=== PATIENT | male | born 1960 | race Caucasian/White ===

== ENCOUNTER 2018-05-12 00:46 | Inpatient (IN) ==
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
[2018-05-12 01:40] LABS: Baso % (Auto) 0.5 % (0.0-2.0); Eos # (Auto) 0.1 th/mm3 (0.0-0.4); Eos % (Auto) 1.3 % (0.0-4.0); Hematocrit 37.8 % (39.0-51.0); Hemoglobin 12.9 gm/dL (13.0-17.0); Lymph # (Auto) 1.7 th/mm3 (1.0-4.8); Lymph % (Auto) 20.7 % (9.0-44.0); Mean Corpuscular Hemoglobin 32.9 pg (27.0-34.0); Mean Corpuscular Volume 96.8 fL (80.0-100.0); Mean Platelet Volume 7.9 fL (7.0-11.0); Mono # (Auto) 0.8 th/mm3 (0.0-0.9); Mono % (Auto) 10.1 % (0.0-8.0); Neut # (Auto) 5.7 th/mm3 (1.8-7.7); Neut % (Auto) 67.4 % (16.0-70.0); Platelet Count 196 th/mm3 (150-450); Red Blood Count 3.91 mil/mm3 (4.50-5.90); Red Cell Distribution Width 14.6 % (11.6-17.2); White Blood Count 8.4 th/mm3 (4.0-11.0)
[2018-05-12 02:03] LABS: Alanine Aminotransferase 41 U/L (12-78); Albumin 3.5 g/dL (3.4-5.0); Anion Gap 10 meq/L (5-15); Aspartate Aminotransferase 26 U/L (15-37); Blood Urea Nitrogen 15 mg/dL (7-18); Calcium 8.3 mg/dL (8.5-10.1); Carbon Dioxide 25.3 meq/L (21.0-32.0); Chloride 112 meq/L (98-107); Glomerular Filtration Rate 69 mL/min (>89); Glucose,Random 84 mg/dL (74-106); Potassium 3.6 meq/L (3.5-5.1); Sodium 147 meq/L (136-145)
[2018-05-12 02:13] LABS: Alkaline Phosphatase 70 U/L (45-117); Thyroid Stimulating Hormone 0.698 uIU/mL (0.358-3.740); Total Protein 6.9 g/dL (6.4-8.2)
[2018-05-12 05:38] LABS: Amphetamine Screen,Urine Neg (Neg); Barbiturate Screen,Urine Neg (Neg); Cannabinoid Screen,Urine Neg (Neg); Cocaine Screen,Urine Neg (Neg)
[2018-05-12 05:56] LABS: Opiate Screen,Urine Neg (Neg)
[2018-05-12] MEDS ORDERED: LORazepam 1 MG Tablet PO PRN (09:34)
[2018-05-12] MEDS ORDERED: Aluminum/Magnesium/Simethacone Susp 30 ML UDC PO PRN (09:34)
[2018-05-12] MEDS ORDERED: Bisacodyl 10 MG Supp RECTAL PRN (09:34)
[2018-05-12] MEDS ORDERED: Haloperidol Inj 5 MG/ML Ampul IV.PUSH PRN (09:34)
--- NOTE | 2018-05-12 11:35 | P.HPPSY ---
Provisional Diagnosis Admission Date: May 12, 2018 09:43 Milroy I.: Schizophrenia Competence Certification of Person's Competence To Provide Express and Informed Consent I have personally examined Shalom Barakat, a person being served at [facility] on, May 12, 2018 1127. Express and informed consent means consent voluntarily given in writing, by a competent person, after sufficient explanation and disclosure of the subject matter involved to enable the person to make a knowing and willful decision without any element of force, fraud, deceit, duress, or other form of constraint or coercion. This person is 18 years of age or older, is not now known to be incompetent to consent to treatment with a guardian advocate, and does not have a health care surrogate or proxy currently making medical treatment decisions. I have found this person to be one of the following: [] Competent to provide express and informed consent, as defined above, for voluntary admission to this facility and is competent to provide express and informed consent for treatment. He/she has the consistent capacity to make well reasoned, willful, and knowing decisions concerning his or her medical or mental health treatment. The person fully and consistently understands the purpose of the admission for examination/placement and is fully capable of personally exercising all rights assured under [place] [] Incompetent to provide express and informed consent to voluntary admission, and this is incompetent to provide express and informed consent to treatment. The person must be transferred to involuntary status and a petition for a guardian advocate filed with the Circuit Court. [x] Refusing to provide express and informed consent to voluntary admission but is competent to provide express and informed consent for treatment. The person must be discharged or transferred to involuntary status. Form shall be completed within 24 hours of a person's arrival at the receiving facility and filed in the clinical record of each person: 1. Admitted on a voluntary basis 2. Permitted to provide express and informed consent to his/her own treatment 3. Allowed to transfer from involuntary to voluntary status 4. Prior to permitting a person to consent to his or her own treatment after having been previously found incompetent to consent to treatment. History of Present Illness Capacity: Has capacity History of Present Illness: The patient is a 57-year-old man, homeless, single, unemployed, supported by [facility], first time at [place], with a psychiatric history of schizophrenia, multiple psychiatric hospitalizations, as well as multiple suicidal attempts, he is noting treatment, denies the use of illegal drugs and alcohol, medical history of hypertension, presents emergency department under [place] act by PD. Patient was directing traffic standing out in the center jose of traffic. The patient states that he has just gotten to the [facility] over the last few days. He states that he is originally from [place]. Chart was reviewed. Case discussed with nurse in charge. On my psychiatric evaluation I find a patient that is calm, cooperative, but oddly related, quite bizarre and laughing inappropriately. He reports that he is here because his brain has been spinning very fast. He also says that he has lost the control of his brain , and he feels like his voice is changing as well as his thoughts. He reports to be in a good mood, he says that he is actually happy, he says that he was diagnosed with schizophrenia many years ago, that he has been hospitalized over 10 times, that he was given Haldol in the past, but he has not been taking medication for a long time now. The patient seems to be quite internally preoccupied, he is also paranoid, he says that he feels that people can hear his thoughts, "and they are "watching at me". The patient has being mostly isolated in the unit, talking to self at times, laughing inappropriately, last night he was described as very intrusive. On the evaluation the patient remains mostly logical, coherent and relevant, he denies suicidal and homicidal ideation, he denies visual and auditory hallucinations. He is oriented x3, no attention deficit, no fluctuation of consciousness. PPHX: Schizophrenia, multiple hospitalizations, suicidal attempts, not treated PMHx: Hypertension Family Hx: He has a sister who has a schedule for Substance HX: Patient admits to tobacco. He denies any alcohol denies drugs. Social Hx: He was born and raised in [place], he is homeless in the [facility] area, is , no kids, unemployed, supported by [facility] - Inpatient Certification I certify that the inpatient services were ordered in accordance with Medicare regulations governing the order. This includes certification that hospital inpatient services are reasonable and necessary and in the case of services not specified as inpatient-only under 42 CFR 419.22(n), that they are appropriately provided as inpatient services in accordance to with the 2-midnight benchmark under 43 CFR 412.3(e) I certify that inpatient psychiatric hospital services are medically necessary. Evaluation and treatment and/or diagnostic testing are expected to improve the patient's condition. The patient needs on a daily basis, active treatment furnished directly by or requiring the supervision of inpatient psychiatric facility personnel. Estimated Total Length of Stay (Days): 7 Plans for Post Hospital Care: Home Review of Systems All other systems reviewed negative except as stated in HPI Psychiatric: Reports anxiety, Reports irritability, Reports paranoia PMFSH - History History Provided By: Law Enforcement - Medical History Medical History: Medical History (Last Reviewed 05/12/18 @ 01:16 by LÁZARO Rea) Hypertension - Substance Use History Substance History: Unable to Obtain - Travel History Recent Travel in the [place] Within the Last 8 Weeks: No Recent Travel Out of the Country Within the Last 8 Weeks: No Medications and Allergies Active Medications: Active Medications Al Hydrox/Mg Hydrox/Simethicone (Mag-Al Plus Susp Liq) 30 ml PO Q6H PRN PRN Reason: DYSPEPSIA Al Hydroxide/Mg Hydroxide (Milk Of Magnesia Liq) 30 ml PO Q12H PRN PRN Reason: Mild Constipation Aripiprazole (Abilify) 5 mg PO DAILY JUDIT Bisacodyl (Dulcolax Supp) 10 mg RECTAL DAILY PRN PRN Reason: SEVERE CONSITIPATION Flumazenil (Romazecon Inj) 0.2 mg IV.PUSH Q1M PRN PRN Reason: OVERSEDATION Haloperidol Lactate (Haldol Inj) 1 mg IV.PUSH Q15M PRN PRN Reason: for severe agitation Lactulose (Lactulose Liq) 30 ml PO DAILY PRN PRN Reason: SEVERE CONSITIPATION Lorazepam (Ativan) 1 mg PO Q4H PRN PRN Reason: for CIWA 8-10 Lorazepam (Ativan) 2 mg PO Q2H PRN PRN Reason: for CIWA 11-14 Lorazepam (Ativan Inj) 2 mg IV.PUSH Q2H PRN PRN Reason: for CIWA 11-14 Lorazepam (Ativan Inj) 2 mg IV.PUSH Q15M PRN PRN Reason: for CIWA > 20 Lorazepam (Ativan Inj) 1 mg IV.PUSH Q4H PRN PRN Reason: for CIWA 8-10 Lorazepam (Ativan Inj) 2 mg IV.PUSH Q1H PRN PRN Reason: for CIWA 15-20 Senna/Docusate Sodium (Yolande-Colace) 1 tab PO BID JUDIT Sennosides (Senokot) 17.2 mg PO Q12H PRN PRN Reason: Moderate Constipation Allergies Allergy/AdvReac Type Severity Reaction Status Date / Time No Known Allergies Allergy Unverified 05/12/18 01:10 Home Medications Medication Instructions Recorded Confirmed Type No Known Home Medications 05/12/18 05/12/18 History Results - Labs CBC & Chem 7: 05/12/18 01:25 05/12/18 01:25 Labs: Laboratory Results - last 24 hr 05/12/18 05/12/18 05/12/18 01:25 01:25 04:15 WBC 8.4 RBC 3.91 L Hgb 12.9 L Hct 37.8 L MCV 96.8 MCH 32.9 MCHC 34.0 RDW 14.6 Plt Count 196 MPV 7.9 Neut % (Auto) 67.4 Lymph % (Auto) 20.7 Karnes % (Auto) 10.1 H Eos % (Auto) 1.3 Baso % (Auto) 0.5 Neut # (Auto) 5.7 Lymph # (Auto) 1.7 Karnes # (Auto) 0.8 Eos # (Auto) 0.1 Baso # (Auto) 0.0 WBC Differential . Differential Comment Auto diff final Sodium 147 H Potassium 3.6 Chloride 112 H Carbon Dioxide 25.3 Anion Gap 10 BUN 15 Creatinine 1.09 Estimated GFR 69 L Random Glucose 84 Calcium 8.3 L Total Bilirubin 0.6 AST 26 ALT 41 Alkaline Phosphatase 70 Total Protein 6.9 Albumin 3.5 TSH 0.698 Urine Opiates Screen Neg Ur Barbiturates Screen Neg Ur Amphetamines Screen Neg U Benzodiazepines Scrn Neg Urine Cocaine Screen Neg U Cannabinoids Screen Neg Serum Alcohol Less than 3 Exam Vital signs: Vital Signs 05/12/18 01:00 05/12/18 04:45 Temperature 98.3 F 98.7 F Pulse Rate 79 77 Respiratory Rate 18 19 Blood Pressure 125/58 L 132/74 Pulse Oximetry 97 99 Intake & Output 05/11/18 05/12/18 05/12/18 18:59 06:59 18:59 Weight 86.183 kg Mental Status Examination Appearance: Appropriate Consciousness: Alert Orientation: x4 Motor Activity: Normal gait Speech: Unremarkable Language: Adequate Fund of Knowledge: Adequate Attention and Concentration: Adequate Memory: Unremarkable Mood: Oppositional, Irritable Affect: Irritable Thought Process & Associations: Intact Thought Content: Delusional Hallucination Type: None Delusion Type: Bizarre, Paranoid Suicidal Ideation: No Suicidal Plan: No Suicidal Intention: No Homicidal Ideation: No Homicidal Plan: No Homicidal Intention: No Insight: Poor Judgment: Poor Assessment and Plan - Plan Plan: Estimated LOS: [] days On psychiatric evaluation today the patient is acutely psychotic, internally preoccupied, paranoid, talking to himself, laughing and appropriate, he also seems to have prominent self-care deficit has being described by police as acting inappropriate in the streets. Patient needs to be admitted in psychiatry for stabilization and safety. He has psychiatric history of schizophrenia, over 10 hospitalizations, suicide attempts, he is not in treatment. We will start Abilify 5 mg daily for psychosis. Transferred to 2700 unit. Justification for Continued Inpatient Stay: For psychiatric admission,
[2018-05-12] MEDS: ARIPiprazole 5 MG Tablet PO SCH (18:05)
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
[2018-05-12] MEDS: Senna/Docusate Sodium 8.6/50 MG Tablet PO SCH (21:43)
[2018-05-13 09:49] LABS: Calcium 7.7 mg/dL (8.5-10.1); Potassium 3.8 meq/L (3.5-5.1)
[2018-05-13 09:54] LABS: Chol/HDL Ratio 2.53 Ratio
[2018-05-13] MEDS: Senna/Docusate Sodium 8.6/50 MG Tablet PO SCH ×2 (11:18→20:22)
[2018-05-13 13:10] LABS: Hemoglobin A1c 5.3 % (4.3-6.0)
[2018-05-13] MEDS ORDERED: Haloperidol Inj 5 MG/ML Ampul IM PRN (14:30)
[2018-05-13] MEDS: ARIPiprazole 5 MG Tablet PO SCH (15:44)
[2018-05-14] MEDS: ARIPiprazole 5 MG Tablet PO SCH (11:10)
[2018-05-14] MEDS: Senna/Docusate Sodium 8.6/50 MG Tablet PO SCH ×2 (11:12→20:36)
[2018-05-15] MEDS: ARIPiprazole 5 MG Tablet PO SCH (08:26)
[2018-05-15] MEDS: Senna/Docusate Sodium 8.6/50 MG Tablet PO SCH ×2 (08:26→21:33)
--- NOTE | 2018-05-15 15:38 | P.TTN ---
- Patient Problems Problems: 1. Discharge planning 2. Medication compliance 3. Knowledge deficit 4. Lack of coping skills - Progress Toward Goals Provider Present: Dr. Tari Dillon (Patient is disorganized, confused, needs to remain for further stabilization.) Psychiatric Counselors Present: Truong Sharpe Jr., [facility] (Counselor met with the patient to discuss discharge plan; however, patient is not oriented to his situation and is either unable or unwilling us a safe discharge plan at this time. Counselor will follow-up when patient is fully oriented.) Group Spec/RT/OT/KHAN Present: BILL Chirinos (Patient attends select groups.) - Documentation Teaching Recipient: Patient
--- NOTE | 2018-05-15 16:56 | P.PNPSY ---
Subjective Remarks: Patient seen for follow-up, chart reviewed. Discussion with nursing staff reported that patient noted be continued with disorganization at times but no behavioral disturbances. Patient was found heavily on unit noted to be calm and cooperative. Patient states that he is eating and drinking well, sleeping well, denies any physical complaints at this time noted to have bizarre statements at times and nonsensical. Patient noted be disorganized at times, reports tolerating medications well. Discussion the patient possibly being referred to an assisted living center was reviewed which he first appeared reluctant but then agreed to consider. Review of Systems All other systems reviewed negative except as stated in HPI Mental Status Examination Appearance: Appropriate Consciousness: Alert Orientation: x4 Motor Activity: Normal gait Speech: Unremarkable Language: Adequate Fund of Knowledge: Adequate Attention and Concentration: Adequate Memory: Unremarkable Mood: Appropriate Affect: Appropriate Thought Process & Associations: Disorganized (At times), Other (rambling) Thought Content: Delusional Hallucination Type: None Delusion Type: Bizarre, Paranoid Suicidal Ideation: No Suicidal Plan: No Suicidal Intention: No Homicidal Ideation: No Homicidal Plan: No Homicidal Intention: No Insight: Poor Judgment: Poor Assessment and Plan - Assessment (1) Schizophrenia Code(s): F20.9 - Schizophrenia, unspecified Status: Acute - Plan Plan: Patient continues with some disorganization, rambling at times with nonsensical statements. Increase Abilify to 10 mg p.o. daily, continue rest of medications. Continue to monitor mood and behavior. Discharge planning a progress. Justification for Continued Inpatient Stay: At risk of further decompensation at lower level care.
[2018-05-16] MEDS: Senna/Docusate Sodium 8.6/50 MG Tablet PO SCH ×2 (09:34→20:37)
[2018-05-16] MEDS: ARIPiprazole 10 MG Tablet PO SCH (09:34)
--- NOTE | 2018-05-16 16:30 | P.PNPSY ---
Subjective Remarks: Patient seen for follow-up, chart reviewed. Discussion with nursing staff reported that [facility], cooperative and compliant with treatment. Patient was found in day room noted to be interacting with other peers. Patient states that he is feeling "good" denying any auditory hallucinations continues to have some disorganization but appears to be lessening. Discussion of having patient referred to an assisted living facility was reviewed which patient first appeared reluctant but then agreed. Review of Systems All other systems reviewed negative except as stated in HPI Mental Status Examination Appearance: Appropriate Consciousness: Alert Orientation: x4 Motor Activity: Normal gait Speech: Unremarkable Language: Adequate Fund of Knowledge: Adequate Attention and Concentration: Adequate Memory: Unremarkable Mood: Appropriate Affect: Appropriate Thought Process & Associations: Disorganized (Lessening) Thought Content: Delusional Hallucination Type: None Delusion Type: Bizarre (Lessening), Paranoid (Lessening) Suicidal Ideation: No Suicidal Plan: No Suicidal Intention: No Homicidal Ideation: No Homicidal Plan: No Homicidal Intention: No Insight: Poor Judgment: Poor Assessment and Plan - Assessment (1) Schizophrenia Code(s): F20.9 - Schizophrenia, unspecified Status: Acute - Plan Plan: Patient this time noted to have less disorganization but continues require stabilization. Discussion of having patient referred to an assisted living facility was reviewed which patient appears reluctant. We will continue current treatment. We will continue to monitor mood and behavior. Discharge planning a progress. Justification for Continued Inpatient Stay: At risk of further decompensation a lower level of care.
[2018-05-17] MEDS: ARIPiprazole 10 MG Tablet PO SCH (08:16)
[2018-05-17] MEDS: Senna/Docusate Sodium 8.6/50 MG Tablet PO SCH ×2 (08:16→20:39)
--- NOTE | 2018-05-17 12:28 | P.TTN ---
- Patient Problems Problems: 1. Discharge planning 2. Medication compliance 3. Knowledge deficit 4. Lack of coping skills - Progress Toward Goals Provider Present: Dr. Tari Dillon (Patient is disorganized, confused, needs to remain for further stabilization.) Provider Input: 05/17/2018: Per doctor, patient's medication was increase to address psychosis Nurse(s) Present: Rn Nurse Input: 05/17/2018; per MAURA Santiago, patient is approachable, taking his medication and redirectable. Psychiatric Counselors Present: Truong Sharpe Jr., [facility] (Counselor met with the patient to discuss discharge plan; however, patient is not oriented to his situation and is either unable or unwilling us a safe discharge plan at this time. Counselor will follow-up when patient is fully oriented.), Lenore Maurice [facility] Psychiatric Therapist Input: 05/17/2018; counselor will need to assist patient with assistance with appropriate placement and outpatient support Group Spec/RT/OT/KHAN Present: BILL Chirinos (Patient attends select groups.), Len Field OT Group Spec/RT/OT/KHAN Input: 05/17/2018 per OT, patient attend selective groups - Documentation Teaching Recipient: Patient
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
--- NOTE | 2018-05-17 16:46 | P.PNPSY ---
Subjective Remarks: Patient seen for follow-up, chart reviewed. Discussion with nursing staff reported that patient noted he used to space of his lips and feet noted B Morris laughing appropriately, noted to have edema of the lower extremities. Patient was found in day room socializing with peers. Patient noted to have toothpaste on his toes stated that he is using this to black out the air bacteria. Patient has bizarre statements at times, but it was some disorganization but pleasant and cooperative with no behavioral disturbances. Review of Systems All other systems reviewed negative except as stated in HPI Mental Status Examination Appearance: Appropriate Consciousness: Alert Orientation: x4 Motor Activity: Normal gait Speech: Unremarkable Language: Adequate Fund of Knowledge: Adequate Attention and Concentration: Adequate Memory: Unremarkable Mood: Appropriate Affect: Appropriate Thought Process & Associations: Disorganized (Lessening) Thought Content: Delusional Hallucination Type: None Delusion Type: Bizarre (Lessening), Paranoid (Lessening) Suicidal Ideation: No Suicidal Plan: No Suicidal Intention: No Homicidal Ideation: No Homicidal Plan: No Homicidal Intention: No Insight: Poor Judgment: Poor Assessment and Plan - Assessment (1) Schizophrenia Code(s): F20.9 - Schizophrenia, unspecified Status: Acute - Plan Plan: Patient this time continues to have some disorganization, making bizarre statements, less paranoid, denying any perceptional services. We will continue to increase Abilify to 50 mg p.o. daily for psychosis. Hospitalist input appreciated. We will continue to monitor mood and behavior. Discharge planning in progress. Justification for Continued Inpatient Stay: At risk of further decompensation at lower level care.
--- NOTE | 2018-05-17 20:23 | P.PNPSY ---
Subjective Remarks: Patient seen for follow-up, chart reviewed. Discussion with nursing staff reported that patient Mental Status Examination Appearance: Appropriate Consciousness: Alert Orientation: x4 Motor Activity: Normal gait Speech: Unremarkable Language: Adequate Fund of Knowledge: Adequate Attention and Concentration: Adequate Memory: Unremarkable Mood: Appropriate Affect: Appropriate Thought Process & Associations: Disorganized (Lessening) Thought Content: Delusional Hallucination Type: None Delusion Type: Bizarre (Lessening), Paranoid (Lessening) Suicidal Ideation: No Suicidal Plan: No Suicidal Intention: No Homicidal Ideation: No Homicidal Plan: No Homicidal Intention: No Insight: Poor Judgment: Poor Assessment and Plan - Assessment (1) Schizophrenia Code(s): F20.9 - Schizophrenia, unspecified Status: Acute
[2018-05-18] MEDS: Senna/Docusate Sodium 8.6/50 MG Tablet PO SCH ×2 (09:52→21:24)
--- NOTE | 2018-05-18 20:49 | P.PNPSY ---
Subjective Remarks: Patient seen for follow-up, chart reviewed. Discussion with nursing staff reported that patient not behavioral issues. Patient was found lying on hospital bed, calm and cooperative. Patient states taht his mood is "good", spoke about his children whom he is estranged from. noted to be tangential, at times speaking about random topics such as him working as a [employer] in the past. Review of Systems All other systems reviewed negative except as stated in HPI Mental Status Examination Appearance: Appropriate Consciousness: Alert Orientation: x4 Motor Activity: Normal gait Speech: Unremarkable Language: Adequate Fund of Knowledge: Adequate Attention and Concentration: Adequate Memory: Unremarkable Mood: Appropriate Affect: Appropriate Thought Process & Associations: Tangential Thought Content: Delusional Hallucination Type: None Delusion Type: Bizarre (Lessening) Suicidal Ideation: No Suicidal Plan: No Suicidal Intention: No Homicidal Ideation: No Homicidal Plan: No Homicidal Intention: No Insight: Poor Judgment: Poor Assessment and Plan - Assessment (1) Schizophrenia Code(s): F20.9 - Schizophrenia, unspecified Status: Acute - Plan Plan: Patient continues with bizarre statements along with tangential but able to interact appropriately, maintaining basic hygiene, cooperative with staff. Patient to continue current treatment, continue to monitor mood and behavior. Patient maintained for further treatment through [facility]. Discharge planning in progress. Justification for Continued Inpatient Stay: At risk for further decompensation at lower level of care.
[2018-05-19] MEDS: Senna/Docusate Sodium 8.6/50 MG Tablet PO SCH ×2 (10:36→20:10)
--- NOTE | 2018-05-19 17:56 | P.PNPSY ---
Subjective Remarks: Patient seen for follow-up, chart reviewed. Discussion with nursing staff reported that patient noted to be pleasant, cooperative. Patient was found in day room, interacting with other peers. He states that he is sleeping well, continues with tangentiality. He states being worried about his social security money which is allegedly accumulated while he was in half-way and would like to retrieve it. He denies any perceptual disturbances, denies SI or HI. Patient continues with uncertainty with possible finding an [facility] but states that he is willing to go to a [facility] as well. Review of Systems All other systems reviewed negative except as stated in HPI Mental Status Examination Appearance: Appropriate Consciousness: Alert Orientation: x4 Motor Activity: Normal gait Speech: Unremarkable Language: Adequate Fund of Knowledge: Adequate Attention and Concentration: Adequate Memory: Unremarkable Mood: Appropriate Affect: Appropriate Thought Process & Associations: Tangential Thought Content: Bizarre thinking Hallucination Type: None Delusion Type: Bizarre (Lessening) Suicidal Ideation: No Suicidal Plan: No Suicidal Intention: No Homicidal Ideation: No Homicidal Plan: No Homicidal Intention: No Insight: Fair Judgment: Impulsive Assessment and Plan - Assessment (1) Schizophrenia Code(s): F20.9 - Schizophrenia, unspecified Status: Acute - Plan Plan: Patient continues with tengentiality but noted to interact appropriately with staff and peers, noted to be less disorganized. Patient to continue current treatment, continue to monitor mood and behavior. Discharge planning in progress. Justification for Continued Inpatient Stay: At risk for further decompensation at lower level of care.
[2018-05-20] MEDS: Senna/Docusate Sodium 8.6/50 MG Tablet PO SCH ×2 (13:34→20:20)
--- NOTE | 2018-05-20 18:57 | P.PNPSY ---
Subjective Remarks: Reviewed electronic medical records and discussed case with staff. Follow-up was conducted in the hallway with the MAURA Monk present. His nurse reports he has been compliant with his medications but still having some loose associations. She did state that there was some improvement noted. She denies that he has had any behavioral issues. Patient states that he feels "excellent ". He states that he feels his mind has "slowed down a bit which is good". Reports that his appetite has been good. His affect is euthymic. He is pleasant and appropriate throughout the interview. Mental Status Examination Appearance: Appropriate Consciousness: Alert Orientation: x4 Motor Activity: Normal gait Speech: Unremarkable Language: Adequate Fund of Knowledge: Adequate Attention and Concentration: Adequate Memory: Unremarkable Mood: Appropriate Affect: Appropriate Thought Process & Associations: Disorganized (Lessening) Thought Content: Delusional Hallucination Type: None Delusion Type: Bizarre (Lessening), Paranoid (Lessening) Suicidal Ideation: No Suicidal Plan: No Suicidal Intention: No Homicidal Ideation: No Homicidal Plan: No Homicidal Intention: No Insight: Poor Judgment: Poor Assessment and Plan - Assessment (1) Schizophrenia Code(s): F20.9 - Schizophrenia, unspecified Status: Acute - Plan Plan: Patient will be reevaluated Tuesday by the attending psychiatrist. Continue with current treatment plan. Justification for Continued Inpatient Stay: Moving this patient to a less restrictive environment would likely result in decompensation.
[2018-05-21] MEDS: Senna/Docusate Sodium 8.6/50 MG Tablet PO SCH (13:08)
--- NOTE | 2018-05-21 16:48 | P.PNPSY ---
Subjective Remarks: Reviewed electronic medical records and discussed case with staff. Follow-up was conducted in common area. Patient is complaining of a cold and cold sore to his lower lip. He is also irritated in his groin. Will request a hospitalist consult to rule out magdiel cruris. Patient is concerned because he ordered a [employer] and had it delivered to the hospital and has not received it. He is also concerned because when he was discharged from skilled nursing they were suppose to transfer his SSDI, but he has not received it and want to be his own payee. He continues to be delusional and paranoid. Nursing staff not that he puts toothpaste on his skin to protect himself from viruses. Mental Status Examination Appearance: Appropriate Consciousness: Alert Orientation: x4 Motor Activity: Normal gait Speech: Unremarkable Language: Adequate Fund of Knowledge: Adequate Attention and Concentration: Adequate Memory: Unremarkable Mood: Appropriate Affect: Appropriate Thought Process & Associations: Tangential Thought Content: Bizarre thinking Hallucination Type: None Delusion Type: Bizarre (Lessening) Suicidal Ideation: No Suicidal Plan: No Suicidal Intention: No Homicidal Ideation: No Homicidal Plan: No Homicidal Intention: No Insight: Fair Judgment: Impulsive Assessment and Plan - Assessment (1) Schizophrenia Code(s): F20.9 - Schizophrenia, unspecified Status: Acute - Plan Plan: Continue current treatment plan . Patient will be seen by a psychiatrist on Tuesday. Justification for Continued Inpatient Stay: Moving patient to a less restrictive environment may result in his decompensation.
[2018-05-21 19:09] VITALS: PULSE 78
[2018-05-22 06:19] VITALS: BP 110/65; RESP 17; TEMP 97.5; O2SAT 94
[2018-05-22] MEDS: Senna/Docusate Sodium 8.6/50 MG Tablet PO SCH ×2 (09:25→09:32)
[2018-05-22] MEDS ORDERED: Clotrimazole 1% Cream 15 GM Tube TOPICAL SCH (11:00)
--- NOTE | 2018-05-22 12:30 | P.PNIM ---
Subjective Interval history: Patient admits visited again due to complaints of groin itching. He says he has a hernia and he thinks this may have been contributory, I agree. Tinea cruris is a high suspicion. No other complaints from this patient. Physical Exam Vital signs: Vital Signs 05/21/18 19:07 05/22/18 06:00 Temperature 98.4 F 97.5 F L Pulse Rate 78 78 Respiratory Rate 20 17 Blood Pressure 138/81 110/65 Pulse Oximetry 95 94 L Intake & Output 05/21/18 05/22/18 05/22/18 18:59 06:59 18:59 Weight 89.3 kg Narrative: GENERAL: NAD, A&Ox3 HEAD: Normocephalic. NECK: Supple, trachea midline. No lymphadenopathy. EYES: No scleral icterus. No injection or drainage. CARDIOVASCULAR: Regular rate and rhythm without murmurs, gallops, or rubs. RESPIRATORY: Breath sounds equal bilaterally. No accessory muscle use. GASTROINTESTINAL: Abdomen soft, non-tender, nondistended. MUSCULOSKELETAL: No cyanosis, or edema. SKIN: Warm and dry. Irritated skin at groin with mild discoloration. NEURO: No focal neurological deficits. Results - Labs CBC & Chem 7: 05/12/18 01:25 05/13/18 08:44 Assessment and Plan - Assessment (1) Tinea cruris Code(s): B35.6 - Tinea cruris Status: Acute - Plan 57-year-old male admitted to psychiatry of schizophrenia Schizophrenia Continue management per psychiatry Tinea cruris Start Lotrimin topically twice daily, continue for at least 2 weeks BLE edema Resolved Maintain adequate nutrition Elevate legs when resting Hx of HTN Not present during this visit Hypocalcemia, mild Continue Tums as needed, OTC Tobacco abuse Continue nicotine patch Patient counseled to quit DVT prophylaxis Patient is amatory
--- NOTE | 2018-05-22 13:53 | P.TTN ---
- Patient Problems Problems: 1. Discharge planning 2. Medication compliance 3. Knowledge deficit 4. Lack of coping skills - Progress Toward Goals Provider Present: Dr. Tari Dillon (Patient is disorganized, confused, needs to remain for further stabilization. May 22, 2018 patient meets criteria for discharge.) Provider Input: 05/17/2018: Per doctor, patient's medication was increase to address psychosis Nurse(s) Present: Rn Nurse Input: 05/17/2018; per MAURA Santiago, patient is approachable, taking his medication and redirectable. Psychiatric Counselors Present: Truong Sharpe Jr., [facility] (Counselor met with the patient to discuss discharge plan; however, patient is not oriented to his situation and is either unable or unwilling us a safe discharge plan at this time. Counselor will follow-up when patient is fully oriented. May 22, 2018, patient has adamantly refused [facility] placement and refuses retirement in the [place] or [place] area patient is requesting to be discharged and reports he will live with his daughter, who is domiciled in the [place] area, patient was either unable or unwilling the discharge plan. Patient was given homeless resources packet, patient was given 3 bus passes upon discharge, patient is linked with [facility] for follow-up psychiatric care.), Lenore Maurice, [facility] Psychiatric Therapist Input: 05/17/2018; counselor will need to assist patient with assistance with appropriate placement and outpatient support Group Spec/RT/OT/KHAN Present: BILL Chirinos (Patient attends select groups.), Len Field OT, BILL Roper (Patient attends select groups.) Group Spec/RT/OT/KHAN Input: 05/17/2018 per OT, patient attend selective groups - Documentation Teaching Recipient: Patient
--- NOTE | 2018-05-22 16:31 | P.DSPSY ---
Psychiatry Discharge Summary Inpatient Psychiatric care?: Yes Advance Directives: No Mental Health Advance Directive: No Health Care Proxy: No - Admission Admission Date: May 12, 2018 09:43 - Admission Diagnosis (1) Schizophrenia Code(s): F20.9 - Schizophrenia, unspecified Brief History: The patient is a 57-year-old man, homeless, single, unemployed, supported by [facility], first time at [place], with a psychiatric history of schizophrenia, multiple psychiatric hospitalizations, as well as multiple suicidal attempts, he is noting treatment, denies the use of illegal drugs and alcohol, medical history of hypertension, presents emergency department under [place] act by PD. Patient was directing traffic standing out in the center [place] of traffic. The patient states that he has just gotten to the [facility] over the last few days. He states that he is originally from [place]. Chart was reviewed. Case discussed with nurse in charge. On my psychiatric evaluation I find a patient that is calm, cooperative, but oddly related, quite bizarre and laughing inappropriately. He reports that he is here because his brain has been spinning very fast. He also says that he has lost the control of his brain , and he feels like his voice is changing as well as his thoughts. He reports to be in a good mood, he says that he is actually happy, he says that he was diagnosed with schizophrenia many years ago, that he has been hospitalized over 10 times, that he was given Haldol in the past, but he has not been taking medication for a long time now. The patient seems to be quite internally preoccupied, he is also paranoid, he says that he feels that people can hear his thoughts, "and they are "watching at me". The patient has being mostly isolated in the unit, talking to self at times, laughing inappropriately, last night he was described as very intrusive. On the evaluation the patient remains mostly logical, coherent and relevant, he denies suicidal and homicidal ideation, he denies visual and auditory hallucinations. He is oriented x3, no attention deficit, no fluctuation of consciousness. PPHX: Schizophrenia, multiple hospitalizations, suicidal attempts, not treated PMHx: Hypertension Family Hx: He has a sister who has a schedule for Substance HX: Patient admits to tobacco. He denies any alcohol denies drugs. Social Hx: He was born and raised in [place], he is homeless in the [facility], is , no kids, unemployed, supported by [facility] Tobacco Use In Past 30 Days: Yes How Often Do You Have a Drink Containing Alcohol: 4 or more times a week Hospital Course: The patient is a 57-year-old man, homeless, single, unemployed, supported by [facility], with a psychiatric history of schizophrenia, multiple psychiatric hospitalizations, as well as multiple suicidal attempts, denies the use of illegal drugs and alcohol, medical history of hypertension, presents emergency department under [place] act by police which reported that patient standing on road in oncoming traffic, talking to self. and was admitted to the inpatient psychiatry unit for further evaluation and management. Patient was admitted to a locked, inpatient psychiatric unit. Appropriate precautions were in place throughout patient's hospital stay. Patient was seen and examined on the unit by psychiatry. Psychotropic medications were adjusted. There was no evidence of any suicidality or homicidality on the inpatient unit. Patient's mood and psychosis improved with the benefit of psychopharmacological treatment and had no behavioral disturbance since admission. Patient was noted to have reached stable mood, noted to participate and engage in treatment and interact with staff adequately. Patient noted to be future oriented with plans to continue treatment and outpatient follow-up appointments for continuity of care. Patient was offered assistance to referral to assisted living facility but refused and requested discharge which at time of request did not meet [place] Act criteria for involuntary inpatient psychiatric treatment. Counselor has arranged discharge plan. On the day of discharge: Patient seen and examined; chart reviewed. Case discussed with nurse and counselor. No behavioral issues overnight. On my examination today, the patient denies any suicidal homicidal ideation, intent or plan on direct questioning and contracts for safety. Patient denies any perceptional disturbances and no delusional material verbalized today. Patient denies any side effects from medication and has understanding of medication regimen and education. No physical complaints. Suicide and violence risk assessment on day of discharge both suggest lower imminent risk, and the patient's level of function is adequate for plan level of outpatient care. Patient has maximized benefit from this inpatient psychiatric hospital stay and will be discharged with discharge plan as arranged by counselor. Patient advised to return to psychiatric emergency room for any concerning psychiatric symptoms. Patient agrees with plan. - Discharge Discharge Date: 05/22/18 - Discharge Diagnosis (1) Schizophrenia Code(s): F20.9 - Schizophrenia, unspecified Status: Acute Discharge Disposition: Given referral and transportation to halfway but refuses and wants to be discharged - Discharge Instructions Discharge Diet: Heart Healthy Diet Activities You Can Perform: Weight Bearing As Tolerat - Discharge Time > 30 minutes Mental Status Examination Appearance: Appropriate Consciousness: Alert Orientation: x4 Motor Activity: Normal gait Speech: Unremarkable Language: Adequate Fund of Knowledge: Adequate Attention and Concentration: Adequate Memory: Unremarkable Mood: Appropriate Affect: Appropriate Thought Process & Associations: Intact Hallucination Type: None Delusion Type: None Suicidal Ideation: No Suicidal Plan: No Suicidal Intention: No Homicidal Ideation: No Homicidal Plan: No Homicidal Intention: No Insight: Fair Judgment: Impulsive Discharge/Advance Care Plan - Results Vital Signs: Last Vital Signs Temp 97.5 F L 05/22/18 06:00 Pulse 78 05/22/18 06:00 Resp 17 05/22/18 06:00 BP 110/65 05/22/18 06:00 Pulse Ox 94 L 05/22/18 06:00 Lab Results: Laboratory Results Hemoglobin A1c 5.3 % (4.3-6.0) 05/13/18 08:44 Triglycerides 77 mg/dL (42-150) 05/13/18 08:44 Cholesterol 124 mg/dL (120-200) 05/13/18 08:44 LDL Cholesterol, Calc 60 mg/dL (0-99) 05/13/18 08:44 HDL Cholesterol 49.0 mg/dL (40.0-60.0) 05/13/18 08:44 TSH 0.698 uIU/mL (0.358-3.740) 05/12/18 01:25 Summary of Procedures: none Pending Results: None - Medications Number of antipsychotic medications at discharge: 1 - Discharge Care Plan Goals to Promote Your Health: * To prevent worsening of your condition and complications * To maintain your health at the optimal level Directions to Meet Your Goals: Take your medications as prescribed Follow your dietary instruction Follow activity as directed Keep your appointments as scheduled Take your immunizations and boosters as scheduled If your symptoms worsen call your PCP, if no PCP go to Urgent Care Center or Emergency Room For 28/02 questions related to your inpatient stay or results of tests pending at discharge, please contact Dr. Neymar Dillon MD at Smoking is Dangerous to Your Health. Avoid second hand smoking
== END 2018-05-22 15:00 | disposition home or self-care (01) ==
LOC: NEPJ 00:46 → NEDA 09:43 → H270 12:51
PROVIDERS: ADMIT Student in an Organized Health Care Education/Training Program; ATTEND Student in an Organized Health Care Education/Training Program